=== PATIENT | male | born 1955 | race Caucasian/White ===

== ENCOUNTER 2019-02-21 17:44 | Emergency (ER) | payer OTHER ==
[~2019-02-21] VITALS: Ht 190.5 cm; Wt 127.0 kg
[2019-02-21 18:12] VITALS: BP 140/90
--- NOTE | 2019-02-21 19:00 | NUR ---
PATIENT WENT TO ER BED 4 BY WHEELCHAIR
--- NOTE | 2019-02-21 19:15 | NUR ---
63/M PRESENTS TO ED FROM [facility] C/O MEDICAL EXAM. PT STATES THAT HIS HEALTH IS NOT MONITORED IT SHOULD BE AT THE [facility], HE WOULD LIKE TO BE SEEN TO MAKE SURE HIS HEALTH IS OKAY. DUE TO A SEIZURE A MONTH AGO AND DUE TO MEDICAL HX OF HTN, CHF, DM AND SEIZURES.
--- NOTE | 2019-02-21 20:13 | NUR ---
Patient discharged with v/s stable. Written and verbal after care instructions given and explained. Patient alert, oriented and verbalized understanding of instructions. Left using wheelchair device. All questions addressed prior to discharge. ID band removed. Patient advised to follow up with PMD. Rx of Metformin given. Patient educated on indication of medication including possible reaction and side effects. Opportunity to ask questions provided and answered.
== END 2019-02-21 20:13 | disposition home or self-care (01) ==
LOC: MED 17:44
DX: E11.9 Type 2 diabetes mellitus without complications (principal); I50.9 Heart failure, unspecified; Z76.0 Encounter for issue of repeat prescription; Z86.73 Personal history of transient ischemic attack (TIA), and cerebral infarction without residual deficits
CPT/HCPCS: 82948; 99283

== ENCOUNTER 2019-04-06 05:20 | Emergency (ER) | payer OTHER ==
[~2019-04-06] VITALS: Ht 190.5 cm; Wt 90.7 kg
[2019-04-06] MEDS ORDERED: NACL 0.9% 500 ML IV SCH (05:26)
[2019-04-06 05:37] VITALS: BP 156/81
--- NOTE | 2019-04-06 05:50 | NUR ---
63 Y/O MALE BIBA C/O SORENESS/WEAKNESS/ STIFFNESS S/P SLIP AND FALL IN THE RESTROOM 5 AM YESTERDAY. PAIN IS A 6/10, GENERALIZED. PATIENT IS PARALYZED ON THE RIGHT SIDE. A/O X4 TO PERSON PLACE, TIME, DATE. HE IS CONTRACTED TO THE RIGHT SIDE. ERMD AWARE OF PATIENT. SIDE RAILSX2. PMH: HTN, CHF, DM, SEIZURES RX:SEE MED REC. ALLERGIES: NONE
--- NOTE | 2019-04-06 05:50 | NUR ---
Note undone in EDM - 04/06/19 at 0554 by [facility] 63 Y/O MALE BIBA C/O SORENESS/WEAKNESS/ STIFFNESS S/P SLIP AND FALL IN THE RESTROOM 5 AM YESTERDAY. PAIN IS A 6/10, GENERALIZED. PATIENT IS PARALYZED ON THE RIGHT SIDE. A/O X4 TO PERSON PLACE, TIME, DATE. HE IS CONTRACTED TO THE RIGHT SIDE. PMH: HTN, CHF, DM, SEIZURES RX:SEE MED REC. ALLERGIES: NONE
[2019-04-06 06:31] LABS: BASOPHILS % (AUTO) 0.3 % (0.0-2.0); EOSINOPHILS % (AUTO) 0.1 % (0.0-4.0); HEMATOCRIT 32.9 % (36-52); HEMOGLOBIN 10.9 g/dL (12.0-18.0); LYMPHOCYTES # (AUTO) 1.1 K/uL (2.0-11.5); LYMPHOCYTES % (AUTO) 11.9 % (20.5-51.1); MEAN CORPUSCULAR HEMOGLOBIN 27 pg (27-31); MEAN CORPUSCULAR HGB CONC 33 g/dL (33-37); MEAN CORPUSCULAR VOLUME 81.8 fL (80-94); MONOCYTES # (AUTO) 0.7 K/uL (0.8-1.0); MONOCYTES % (AUTO) 7.6 % (1.7-9.3); NEUTROPHILS # (AUTO) 7.2 K/uL (1.8-7.7); NEUTROPHILS % (AUTO) 80.1 % (42.2-75.2); PLATELET COUNT (AUTO) 249 K/uL (140-450); RED BLOOD CELL COUNT(AUTO) 4.03 MIL/uL (4.20-6.10); RED CELL DISTRIBUTION WIDTH 14.9 % (11.6-13.7); WHITE BLOOD COUNT (AUTO) 8.9 K/uL (4.8-10.8)
[2019-04-06 06:32] LABS: ALBUMIN 3.1 g/dL (3.4-5.0); ANION GAP 11.4 (8-16); CARBON DIOXIDE 28.9 mmol/L (21-32); CREATININE 1.8 mg/dL (0.7-1.3); POTASSIUM 4.3 mmol/L (3.5-5.1); TOTAL BILIRUBIN 0.3 mg/dL (0.0-1.0)
[2019-04-06 06:39] LABS: PROTHROMBIN TIME 9.5 secs (10.8-13.4)
--- NOTE | 2019-04-06 06:40 | NUR ---
PT WENT TO CT
--- NOTE | 2019-04-06 06:43 | NUR ---
PATIENT TAKEN TO CT.
--- NOTE | 2019-04-06 06:51 | NUR ---
Pt. is sleeping at this time. Side railsx2.
--- NOTE | 2019-04-06 07:15 | NUR ---
Pt report given to LAQUITA Vergara. Transfer of care at this time.
--- NOTE | 2019-04-06 07:16 | NUR ---
PT ASLEEP. EASILY AROUSABLE BY VOICE. FULL CLEAR SPEECH. EVEN AND UNLABORED BREATHING. NO SIGNS AND SYMPTOMS OF DISTRESS NOTED. PT ON FULL LOAD DISPATCHER LOCAL. WILL CONTINUE TO MONITOR.
[2019-04-06 07:18] LABS: BILIRUBIN,URINE NEGATIVE (NEGATIVE); BLOOD, URINE TRACE-I (NEGATIVE); LEUKOCYTE ESTERASE ,URINE 1+ (NEGATIVE); NITRITE, URINE POSITIVE (NEGATIVE); PH,URINE 6.5 (5.0-9.0); UGLUCOSE NEGATIVE (NEGATIVE)
[2019-04-06 07:19] LABS: COLOR,URINE YELLOW (YELLOW)
[2019-04-06 07:25] LABS: APPEARANCE,URINE SLIGHTLY HAZY (CLEAR)
[2019-04-06 07:34] LABS: RBC,URINE 0-5 /HPF (0-5)
--- NOTE | 2019-04-06 07:54 | NUR ---
DR MARTINEZ AT BEDSIDE FOR PT EVALUATION
[2019-04-06] MEDS ORDERED: cefTRIAXone 1,000 MG VIAL ONE (08:19)
--- NOTE | 2019-04-06 08:50 | NUR ---
Pt report given to LAQUITA AGUIAR. Transfer of care at this time.
[2019-04-06 09:15] VITALS: BP 122/95
--- NOTE | 2019-04-06 09:15 | NUR ---
Patient discharged with v/s stable. Written and verbal after care instructions given and explained. Patient alert, oriented and verbalized understanding of instructions. Wheel Chair Assisted with by halie Kaufman. All questions addressed prior to discharge. ID band removed. Patient advised to follow up with PMD. Rx of Bactrim given. Patient educated on indication of medication including possible reaction and side effects. Opportunity to ask questions provided and answered. Pt transported back to [facility] by Halie Kaufman.
== END 2019-04-06 09:15 | disposition home or self-care (01) ==
LOC: MED 05:20
DX: R53.1 Weakness (principal); N39.0 Urinary tract infection, site not specified; I11.0 Hypertensive heart disease with heart failure; I50.9 Heart failure, unspecified; E11.9 Type 2 diabetes mellitus without complications; Z86.73 Personal history of transient ischemic attack (TIA), and cerebral infarction without residual deficits; Z98.890 Other specified postprocedural states
CPT/HCPCS: 36415; 70450; 71045; 80053; 81001; 82948; 83605; 83880; 84484; 85025; 85610; 85730; 87040; 87086; 93005; 96365; 99284; J0696; J7030

== ENCOUNTER 2019-08-11 15:12 | Emergency (ER) | payer OTHER, MEDICAID ==
[~2019-08-11] VITALS: Ht 190.5 cm; Wt 127.0 kg
[2019-08-11 15:18] VITALS: BP 176/91
--- NOTE | 2019-08-11 15:22 | NUR ---
PT PLACED IN BED 6.
--- NOTE | 2019-08-11 15:45 | NUR ---
PT BIBA C/O RIGHT ANKEL PAIN S/P MECHANICAL FALL TODAY AT A DR'S APPOINTMENT. PT'S RIGHT ANKLE IS EDEMAOUS W/O DISCOLORATION OR DEFORMITY. REDUCED ROM. PT DENIES HIT HIS HEAD OR LOC DUE TO THE FALL. PATIENT STATES PAIN OF 8/10 AT THIS TIME; VSS; PATIENT POSITIONED FOR COMFORT; HOB ELEVATED; BEDRAILS UP X2; BED DOWN. ER MD MADE AWARE OF PT STATUS. PT IS ON THE MONITOR.
--- NOTE | 2019-08-11 16:40 | NUR ---
Pt is resting in bed with eyes closed. VSS.
--- NOTE | 2019-08-11 17:22 | NUR ---
RIGHT ANKLE WRAPPED WITH AN GRACIA WRAP #3, PULSES, MOTOR, AND CIRCULATION INTACT BEFORE AND AFTER APPLICATION.
[2019-08-11] MEDS: KETOROLAC 60 MG/2 ML VIAL IM ONE (17:25)
[2019-08-11 18:16] VITALS: BP 143/89
--- NOTE | 2019-08-11 18:16 | NUR ---
Patient to be transferred to [facility]. Patient belongings inventoried and will be sent with patient. Prescription and care instruction will be sent with patient. Report called to the receiving facility. [facility] ambulance service is transfering pt at bedside.
== END 2019-08-11 18:20 ==
LOC: MED 15:12
DX: S93.401A Sprain of unspecified ligament of right ankle, initial encounter (principal); I11.0 Hypertensive heart disease with heart failure; I50.9 Heart failure, unspecified; E11.9 Type 2 diabetes mellitus without complications; Z86.69 Personal history of other diseases of the nervous system and sense organs; Z86.73 Personal history of transient ischemic attack (TIA), and cerebral infarction without residual deficits; W18.39XA Other fall on same level, initial encounter; Y92.89 Other specified places as the place of occurrence of the external cause; Y93.89 Activity, other specified; Y99.8 Other external cause status
CPT/HCPCS: 73610; 96372; 99283; J1885; Q0092

== ENCOUNTER 2019-08-12 14:09 | Emergency (ER) | payer OTHER, MEDICAID ==
[~2019-08-12] VITALS: Ht 190.5 cm; Wt 127.0 kg
[2019-08-12 14:16] VITALS: BP 134/82
--- NOTE | 2019-08-12 14:40 | NUR ---
RECHECK FOR RT ANKLE SPRAIN SEEN YESTERDAY S/P FELL AT HIS DOCTORS APOINTMENT. DENIES ALOC OR OTHER INJURIES. NO DEFORMITY NOTED. CMS INTACT. HX: LT CVA, RT HEMIPHARESIS, HTN, DM, CHF
--- NOTE | 2019-08-12 14:54 | NUR ---
POSTERIOR SHORT LEG SPLINT APPLIED TO THE PATIENT'S RIGHT ANKLE AND FOOT. ORTHO GLASS #5 USED IN COMBINATION WITH TWO GRACIA WRAP #3. PULSES, MOTOR, AND CIRCULATION INTACT BEFORE AND AFTER APPLICATION.
--- NOTE | 2019-08-12 15:00 | NUR ---
POSTERIOR SHORT LEG SPLINT APPLIED TO L LEG BY EMT. [facility]MSC INTACT PRIOR TO SPLINT. PMSC INTACT POST SPLINT.
[2019-08-12 15:15] VITALS: BP 134/82
[2019-08-12] MEDS: IBUPROFEN 800 MG TAB PO ONE (15:36)
--- NOTE | 2019-08-12 15:38 | NUR ---
Patient discharged with v/s stable. Written and verbal after care instructions given and explained. Patient verbalized understanding. LEFT VIA ELECTRIC W/C. All questions addressed prior to discharge. Advised to follow up with PMD.
== END 2019-08-12 15:38 | disposition home or self-care (01) ==
LOC: MED 14:09
DX: S93.401A Sprain of unspecified ligament of right ankle, initial encounter (principal); I11.0 Hypertensive heart disease with heart failure; I50.9 Heart failure, unspecified; E11.9 Type 2 diabetes mellitus without complications; Z86.69 Personal history of other diseases of the nervous system and sense organs; Z86.73 Personal history of transient ischemic attack (TIA), and cerebral infarction without residual deficits; X58.XXXA Exposure to other specified factors, initial encounter; Y92.89 Other specified places as the place of occurrence of the external cause; Y93.89 Activity, other specified; Y99.8 Other external cause status
CPT/HCPCS: 29515; 99283

== ENCOUNTER 2019-08-14 04:23 | Emergency (ER) | payer OTHER, MEDICAID ==
[~2019-08-14] VITALS: Ht 190.5 cm; Wt 127.0 kg
--- NOTE | 2019-08-14 04:25 | NUR ---
PT BETO BENITEZ. TAKEN TO BED 11
[2019-08-14 04:30] VITALS: BP 140/96
--- NOTE | 2019-08-14 04:48 | NUR ---
Dr. Medley examining patient.
--- NOTE | 2019-08-14 04:50 | NUR ---
63 YO M BETO FROM [facility] FOR COLD S/SX. PT C/O RUNNY NOSE, SORE THROAT AND WET PRODUCTIVE COUGH X 3 DAYS. REPORTS SUBJECTIVE FEVER, CHILLS. DENIES NVD. LUNG SOUNDS DIMINISHED. PT BREATHING THROUGH MOUTH. DIFFICULTY TAKING DEEP BREATH. SKIN COLOR NORMAL FOR ETHNICITY, WARM, DRY. BREATHING EVEN, UNLABORED. 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
[2019-08-14] MEDS ORDERED: KETOROLAC 30 MG/ML VIAL IVP ONE (04:55)
[2019-08-14] MEDS ORDERED: NACL 0.9% 1,000 ML IV ONE (04:55)
--- NOTE | 2019-08-14 05:08 | NUR ---
XR AT BEDSIDE.
--- NOTE | 2019-08-14 05:15 | NUR ---
MEDICATED WITH 30 MG IVP TORADOL. WILL REASSESS.
--- NOTE | 2019-08-14 05:28 | NUR ---
FLU SWAB COLLECTED AND WALKED TO LAB.
--- NOTE | 2019-08-14 05:30 | NUR ---
REPORTS MINIMAL RELIEF. 7/10 FUNES. STATES IS TOLERABLE AT THIS TIME.
[2019-08-14 05:43] LABS: BASOPHILS % (AUTO) 0.1 % (0.0-2.0); HEMATOCRIT 31.7 % (36-52); HEMOGLOBIN 10.4 g/dL (12.0-18.0); LYMPHOCYTES # (AUTO) 0.2 K/uL (2.0-11.5); LYMPHOCYTES % (AUTO) 2.4 % (20.5-51.1); MEAN CORPUSCULAR HEMOGLOBIN 27 pg (27-31); MEAN CORPUSCULAR HGB CONC 33 g/dL (33-37); MEAN CORPUSCULAR VOLUME 81.2 fL (80-94); MONOCYTES # (AUTO) 0.5 K/uL (0.8-1.0); MONOCYTES % (AUTO) 5.3 % (1.7-9.3); NEUTROPHILS # (AUTO) 9.4 K/uL (1.8-7.7); NEUTROPHILS % (AUTO) 92.2 % (42.2-75.2); PLATELET COUNT (AUTO) 209 K/uL (140-450); RED CELL DISTRIBUTION WIDTH 14.7 % (11.6-13.7); WHITE BLOOD COUNT (AUTO) 10.2 K/uL (4.8-10.8)
[2019-08-14 06:05] LABS: ALBUMIN 2.7 g/dL (3.4-5.0); ANION GAP 10.1 (8-16); CREATININE 1.8 mg/dL (0.7-1.3); POTASSIUM 4.1 mmol/L (3.5-5.1); TOTAL BILIRUBIN 0.3 mg/dL (0.0-1.0)
--- NOTE | 2019-08-14 06:34 | NUR ---
CALLED TUCKER DE JESUS TO GIVE REPORT. NO ANSWER .
--- NOTE | 2019-08-14 06:43 | NUR ---
PT WILL BE TRANSPORTED BACK TO [facility]IA [facility]. ETA [phone].
--- NOTE | 2019-08-14 06:45 | NUR ---
PT REPORTS FUNES RETURNING. 03/[address] MCCARTNEY MADE AWARE.
[2019-08-14] MEDS ORDERED: MORPHINE SULFATE 4 MG/ML SYR IVP ONE (06:50)
--- NOTE | 2019-08-14 07:06 | NUR ---
MEDICATED WITH 4 MG IVP FOR 8 FUNES. WILL REASSESS.
--- NOTE | 2019-08-14 07:08 | NUR ---
CALLED TUCKER DE JESUS TO GIVE REPORT. NO ANSWER .
--- NOTE | 2019-08-14 07:08 | NUR ---
PT PLACED ON 3 LPM O2 FOR SPO2 <94%. SPO2 INCREASED TO 97%.
--- NOTE | 2019-08-14 07:10 | NUR ---
REPORT GIVEN TO LAQUITA CUEVAS. TRANSFER OF CARE AT THIS TIME.
--- NOTE | 2019-08-14 07:49 | NUR ---
Patient discharged with v/s stable. Written and verbal after care instructions given and explained. Patient alert, oriented and verbalized understanding of instructions. Wheel Chair Assisted with [facility] to intermediate. All questions addressed prior to discharge. ID band removed. Patient advised to follow up with PMD. Rx of Motrin 800mg and [place] 5mg was given. Patient educated on indication of medication including possible reaction and side effects. Opportunity to ask questions provided and answered.
[2019-08-14 07:50] VITALS: BP 123/77
--- NOTE | 2019-08-14 07:50 | NUR ---
[facility] arrived to transport pt to [facility]
== END 2019-08-14 07:49 | disposition home or self-care (01) ==
LOC: MED 04:23
DX: J10.1 Influenza due to other identified influenza virus with other respiratory manifestations (principal); I11.0 Hypertensive heart disease with heart failure; I50.9 Heart failure, unspecified; E11.9 Type 2 diabetes mellitus without complications; Z86.73 Personal history of transient ischemic attack (TIA), and cerebral infarction without residual deficits; Z90.49 Acquired absence of other specified parts of digestive tract
CPT/HCPCS: 36415; 71045; 80053; 84484; 85025; 87804; 96374; 96375; 99284; J1885; J2270; J7030; Q0092

== ENCOUNTER 2019-08-16 08:27 | Emergency (ER) | payer OTHER, MEDICAID ==
[~2019-08-16] VITALS: Ht 190.5 cm; Wt 127.0 kg
[2019-08-16 08:39] VITALS: BP 177/101
[2019-08-16 09:55] VITALS: BP 177/101
== END 2019-08-16 09:54 | disposition home or self-care (01) ==
LOC: MED 08:27
DX: J11.1 Influenza due to unidentified influenza virus with other respiratory manifestations (principal); E11.9 Type 2 diabetes mellitus without complications; I10 Essential (primary) hypertension; Z86.79 Personal history of other diseases of the circulatory system; Z90.49 Acquired absence of other specified parts of digestive tract
CPT/HCPCS: 71045; 99283; Q0092

== ENCOUNTER 2019-08-22 21:26 | Inpatient (IN) | payer OTHER, MEDICAID ==
[~2019-08-22] VITALS: Ht 185.4 cm; Wt 108.9 kg
[2019-08-22 21:30] VITALS: BP 134/76
--- NOTE | 2019-08-22 21:30 | NUR ---
63 Y/O MALE PT BIBA BLS C/O PRODUCTIVE COUGH AND CONGESTION X 1 MONTH. A/OX4 FOLLOWS COMMANDS; BREATHING UNLABORED AND SYMMETRICAL. CLEAR/DIMINISHED BREATH SOUNDS. DRY COUGH NOTED. RIGHT SIDED DEFICITS NOTED. ERMD MADE AWARE OF STATUS. SIDE RAILSX1. WILL CONTINUE TO MONITOR. MEDHX: STROKE X 2, HTN, CHF, HLD RX:SEE MED RECORD NKDA
[2019-08-22] MEDS ORDERED: KETOROLAC 30 MG/ML VIAL IVP ONE (21:50)
[2019-08-22] MEDS ORDERED: NACL 0.9% 1,000 ML IV ONE (21:50)
[2019-08-22] MEDS ORDERED: MEROPENEM 1,000 MG in NACL 0.9% 100 ML IV ONE (22:10)
[2019-08-22] MEDS ORDERED: VANCOMYCIN 1,000 MG in DEXTROSE 5% 250 ML IV ONE (22:10)
[2019-08-22] MEDS ORDERED: DOCUSATE SODIUM 100 MG GELCAP PO PRN (22:25)
[2019-08-22] MEDS ORDERED: ACETAMINOPHEN 325 MG TAB PO PRN (22:25)
[2019-08-22] MEDS ORDERED: ONDANSETRON 4 MG/2 ML VIAL IM/IVP PRN (22:25)
[2019-08-22] MEDS ORDERED: VANCOMYCIN 1,000 MG VIAL ONE (22:38)
[2019-08-22] MEDS ORDERED: MEROPENEM 1,000 MG VIAL IV ONE (22:38)
[2019-08-22 22:46] LABS: BASOPHILS % (AUTO) 0.3 % (0.0-2.0); EOSINOPHILS % (AUTO) 0.3 % (0.0-4.0); HEMATOCRIT 36.6 % (36-52); HEMOGLOBIN 11.8 g/dL (12.0-18.0); LYMPHOCYTES # (AUTO) 1.2 K/uL (2.0-11.5); LYMPHOCYTES % (AUTO) 14.7 % (20.5-51.1); MEAN CORPUSCULAR HEMOGLOBIN 26 pg (27-31); MEAN CORPUSCULAR HGB CONC 32 g/dL (33-37); MEAN CORPUSCULAR VOLUME 80.9 fL (80-94); MONOCYTES # (AUTO) 0.5 K/uL (0.8-1.0); MONOCYTES % (AUTO) 6.2 % (1.7-9.3); NEUTROPHILS # (AUTO) 6.4 K/uL (1.8-7.7); NEUTROPHILS % (AUTO) 78.5 % (42.2-75.2); PLATELET COUNT (AUTO) 249 K/uL (140-450); RED BLOOD CELL COUNT(AUTO) 4.53 MIL/uL (4.20-6.10); WHITE BLOOD COUNT (AUTO) 8.2 K/uL (4.8-10.8)
[2019-08-22 23:02] LABS: ANION GAP 13.3 (8-16); CARBON DIOXIDE 29.1 mmol/L (21-32); CREATININE 2.1 mg/dL (0.7-1.3); POTASSIUM 4.4 mmol/L (3.5-5.1)
[2019-08-22] MEDS ORDERED: ACET-2619 PO (23:06)
[2019-08-22 23:07] LABS: ALBUMIN 3.2 g/dL (3.4-5.0); TOTAL BILIRUBIN 0.3 mg/dL (0.0-1.0)
[2019-08-22] MEDS ORDERED: BUME1TAB92 PO (23:07)
[2019-08-22 23:09] LABS: CREATINE KINASE MB 1.2 ng/mL (0-3.6)
[2019-08-22] MEDS ORDERED: CETI10TA71 PO (23:09)
[2019-08-22] MEDS ORDERED: DOCU-299 PO (23:10)
[2019-08-22] MEDS ORDERED: FERR325E14 PO (23:11)
[2019-08-22] MEDS ORDERED: HYDR100T79 PO (23:12)
[2019-08-22] MEDS ORDERED: SITA100T8 PO (23:14)
[2019-08-22] MEDS ORDERED: HYDR-3320 PO (23:14)
[2019-08-22 23:15] LABS: PROTHROMBIN TIME 9.9 secs (10.8-13.4)
[2019-08-22] MEDS ORDERED: ONDA4TAB PO (23:19)
[2019-08-22] MEDS ORDERED: [UNRECOGNIZED DRUG - CODE] TP (23:20)
[2019-08-22] MEDS ORDERED: TRAZ-343 PO (23:24)
[2019-08-22] MEDS ORDERED: DICL100T2 TP (23:26)
[2019-08-22] MEDS ORDERED: INSULIN LISPRO SLIDING SCALE 100 UNITS/ML VIAL SUBQ PRN (23:40)
[2019-08-22] MEDS ORDERED: AZITHROMYCIN 500 MG in DEXTROSE 5% 250 ML IV ONE (23:40)
--- NOTE | 2019-08-22 23:45 | NUR ---
PT WAS UNABLE TO URINATE AT THIS TIME. ERMD MADE AWARE
[2019-08-22 23:59] LABS: PHOSPHORUS 2.8 mg/dL (2.5-4.9); THYROID STIMULATING HORMONE 2.7 uIU/mL (0.34-3.74)
[2019-08-23] MEDS ORDERED: ROSU40TA PO (00:03)
[2019-08-23] MEDS ORDERED: LOSA25TA43 PO (00:03)
[2019-08-23] MEDS ORDERED: TAMS0.4C96 PO (00:03)
[2019-08-23] MEDS ORDERED: GLIP5TER PO (00:03)
[2019-08-23] MEDS ORDERED: HYDR-732 PO (00:03)
[2019-08-23] MEDS ORDERED: SITA50TA3 PO (00:03)
[2019-08-23] MEDS ORDERED: ASPI81EC97 PO (00:03)
[2019-08-23] MEDS ORDERED: LEVE1000 PO (00:03)
--- NOTE | 2019-08-23 00:10 | NUR ---
Patient will be admitted to care of DR. MCRAE. Admited to MED-SURG ROOM 116 Belongings list completed. Report to LAQUITA HARTMAN.
--- NOTE | 2019-08-23 00:15 | NUR ---
RECEIVED BEDSIDE REPORT FROM [place] ER NURSE. PATIENT IS AWAKE, ALERT, AND COOPERATIVE. ADMITTING DIAGNOSIS PNEUMONIA. RESPIRATION EVEN UNLABORED ON 2L NC O2. NO DISTRESS NOTED. SKIN IS WARM AND DRY. IV INFILTRATED. SWELLING NOTED. HEART RATE REGULAR. S1&S2 NOTED. LUNGS SOUNDS DIMINISHED. BOWEL SOUNDS ACTIVE AND PRESENT IN ALL QUADRANTS. ABDOMEN SOFT AND ROUND NON-TENDER TO TOUCH. LAST BM 08/22/19. RIGHT SIDEDNESS WEAKNESS NOTED HX OF CVA 1995. MRSA SCREEN DONE. VITALS WERE TAKEN. ORIENT PATIENT TO THE ROOM, STAFF, AND CALL LIGHT. ALL SAFETY MEASURES IN PLACE. BED IS AT LOW POSITION. CALL LIGHT WITHIN REACH AND VERBALIZES ITS USE. WILL CONTINUE TO MONITOR.
--- NOTE | 2019-08-23 00:30 | NUR ---
UNABLE TO START AN IV. CHARGE NURSE TRIED SEVERAL TIMES STILL NO LUCK. NOTIFIED . AWAITING FOR ORDERS.
[2019-08-23 00:48] VITALS: BP 141/95
--- NOTE | 2019-08-23 01:30 | NUR ---
AWAITING FOR ER NURSE TO START AN IV. WILL CONTINUE TO MONITOR.
--- NOTE | 2019-08-23 02:39 | NUR ---
CHECKED PATIENT. PATIENT SLEEPING RESPIRATION EVEN UNLABORED ON 2L NC O2. NO DISTRESS NOTED. WILL CONTINUE TO MONITOR.
--- NOTE | 2019-08-23 03:46 | NUR ---
PATIENT COMPLAINED OF BACK MUSCLE SPASM 04/12. ADMINISTERED MEDS PER ORDER. WILL CONTINUE TO MONITOR.
[2019-08-23 04:00] LABS: APPEARANCE,URINE CLOUDY (CLEAR); BILIRUBIN,URINE NEGATIVE (NEGATIVE); BLOOD, URINE NEGATIVE (NEGATIVE); COLOR,URINE YELLOW (YELLOW); LEUKOCYTE ESTERASE ,URINE NEGATIVE (NEGATIVE); NITRITE, URINE NEGATIVE (NEGATIVE); UGLUCOSE NEGATIVE (NEGATIVE)
[2019-08-23] MEDS ORDERED: CYCLOBENZAPRINE 10 MG TAB PO SCH ×2 (04:00→21:30)
[2019-08-23 04:09] LABS: BARBITURATE, URINE NEG. ng/ml (NEG <=200); BENZODIAZEPINE, URINE NEG. ng/mL (NEG <=200); CANNABINOID, URINE NEG. ng/mL (NEG <=50); COCAINE, URINE NEG. ng/mL (NEG <=300); OPIATE, URINE NEG. ng/mL (NEG <=2000); PHENCYCLIDINE SCREEN,URINE NEG. ng/mL (NEG <=25)
[2019-08-23] MEDS ORDERED: cefTRIAXone 1,000 MG VIAL ONE (04:10)
[2019-08-23] MEDS ORDERED: AZITHROMYCIN 500 MG INJ VIAL IV ONE (04:12)
[2019-08-23] MEDS: NACL 0.9% 1,000 ML IV SCH ×3 (04:27→22:49)
--- NOTE | 2019-08-23 06:17 | NUR ---
Called PICC division officer weapons department and texted Elvis PICC RN, lm for both
[2019-08-23] MEDS: BLOOD GLUCOSE MONITORING 1 DEV DEV FS SCH ×4 (06:34→20:54)
--- NOTE | 2019-08-23 07:20 | NUR ---
ENDORSED PATIENT TO DAY SHIFT NURSE. PATIENT IN STABLE CONDITION.
--- NOTE | 2019-08-23 07:25 | NUR ---
REPORT RECEIVED FROM BILLING AUDITOR NURSE FOR CONTINUATION OF CARE. PATIENT IS RESTING IN BED, AAOX4, RESPONDS TO VERBAL COMMANDS. IV IS IN LEFT HAND, PICC LINE ORDERED AND TO BE GIVEN TODAY FOR HX OF CONSECUTIVE IV PLACEMENT FAILURE AND HIGH DEMAND FOR IV ANTIBIOTICS. CONSENT TO BE SIGNED AND PROCEDURE TO BE EXPLAINED BY RESIDENT PHYSICIAN. CALL LIGHT ON AND WITHIN REACH. WILL CONTINUE TO MONITOR.
[2019-08-23 07:52] LABS: MAGNESIUM 1.8 mg/dL (1.8-2.4); PHOSPHORUS 3.2 mg/dL (2.5-4.9)
[2019-08-23 08:00] VITALS: BP 134/93
[2019-08-23 08:24] LABS: BASOPHILS % (AUTO) 0.2 % (0.0-2.0); EOSINOPHILS % (AUTO) 0.2 % (0.0-4.0); HEMATOCRIT 31.1 % (36-52); HEMOGLOBIN 10.3 g/dL (12.0-18.0); LYMPHOCYTES # (AUTO) 1.1 K/uL (2.0-11.5); LYMPHOCYTES % (AUTO) 17.3 % (20.5-51.1); MEAN CORPUSCULAR HEMOGLOBIN 27 pg (27-31); MEAN CORPUSCULAR HGB CONC 33 g/dL (33-37); MEAN CORPUSCULAR VOLUME 80.2 fL (80-94); MONOCYTES # (AUTO) 0.4 K/uL (0.8-1.0); MONOCYTES % (AUTO) 6.9 % (1.7-9.3); NEUTROPHILS # (AUTO) 4.8 K/uL (1.8-7.7); NEUTROPHILS % (AUTO) 75.4 % (42.2-75.2); PLATELET COUNT (AUTO) 214 K/uL (140-450); RED BLOOD CELL COUNT(AUTO) 3.88 MIL/uL (4.20-6.10); RED CELL DISTRIBUTION WIDTH 14.6 % (11.6-13.7); WHITE BLOOD COUNT (AUTO) 6.3 K/uL (4.8-10.8)
--- NOTE | 2019-08-23 08:40 | NUR ---
PATIENT HAS BEEN SCREENED AND CATEGORIZED MODERATE NUTRITION RISK. PATIENT WILL BE SEEN WITHIN 3-5 DAYS OF ADMISSION. 08/25/19 08/27/[address]
[2019-08-23 08:54] LABS: CHOL/HDL RATIO 4.9 (1-4.5)
[2019-08-23] MEDS ORDERED: ROSUVASTATIN CALCIUM 40 MG PO SCH (09:00)
--- NOTE | 2019-08-23 10:30 | NUR ---
PATIENT REFUSED TO HAVE A PICC LINE INSERTED, THERE IS AN IV IN HIS LEFT HAND THAT IS SUFFICIENT PER MD. PICC LINE ORDER DC'D. MEDICATIONS TOLERATED WELL, PATIENT HAS RIGHT SIDED HEMIPLEGIA. PATIENT IS RESTING IN BED, REPOSITIONED FOR COMFORT. EDUCATED ON THE IMPORTANCE OF USING THE CALL LIGHT WHEN IN NEED. WILL CONTINUE TO MONITOR.
[2019-08-23] MEDS: levETIRAcetam 500 MG TAB PO SCH ×2 (10:48→20:43)
[2019-08-23] MEDS: TAMSULOSIN 0.4 MG CAP PO SCH (10:48)
[2019-08-23] MEDS: FERROUS SULFATE 325 MG TABEC PO SCH ×2 (10:49→20:43)
[2019-08-23] MEDS: LACTOBACILLUS RHAMNOSUS GG 1 EACH CAP PO SCH (10:49)
[2019-08-23] MEDS: glipiZIDE ER 5 MG TABER PO SCH (10:49)
[2019-08-23] MEDS: hydrALAZINE 25 MG TAB PO SCH ×4 (10:49→20:43)
[2019-08-23] MEDS: traZODone 50 MG TAB PO SCH (10:50)
[2019-08-23] MEDS: LOSARTAN 25 MG TAB PO SCH (10:50)
[2019-08-23] MEDS: guaiFENesin 600 MG TABER PO SCH ×2 (10:51→20:42)
[2019-08-23] MEDS: ATORVASTATIN 80 MG TAB PO SCH (10:51)
[2019-08-23] MEDS: ECOTRIN 81 MG TABEC PO SCH (10:51)
[2019-08-23] MEDS: ALBUTEROL SULFATE/IPRATROPIU 3 ML SOL IH SCH ×2 (13:01→19:39)
--- NOTE | 2019-08-23 13:35 | NUR ---
HERNANDEZ CATHETER INSERTED PER MD'S ORDERS, PATIENT COMPLAINING OF URGE TO URINATE WITH NO SUCCESSFUL URINATION, HE REPORTS PAIN AND DISCOMFORT, UPON SUCCESSFUL INSERTION OF HERNANDEZ CATHETER PATIENT HAD AN IMMEDIATE OUTPUT OF 175 ML'S OF DARK YELLOW URINE. PATIENT REPORTS RELIEF AT THIS TIME. EDUCATED ON THE SIGNS AND SYMPTOMS OF URINARY TRACT INFECTION AND TO REPORT TO NURSE IF FEELING PAIN OR FEVER. WILL CONTINUE TO MONITOR.
[2019-08-23 16:00] VITALS: BP 133/79
--- NOTE | 2019-08-23 16:00 | NUR ---
EDUCATED PATIENT ON THE IMPORTANCE OF REPORTING INCREASED THIRST, URINATION, OR APPETITE EARLY SIGNS OF BLOOD GLUCOSE DYSFUNCTION AND THE IMPORTANCE OF EARLY INTERVENTION. DENIS VERBALIZES UNDERSTANDING. PATIENT IS RESTING IN BED, CALL LIGHT ON AND WITHIN REACH. DENIES PAIN AT THIS TIME. HERNANDEZ CATHETER DRAINING CLEAR YELLOW URINE. HE DENIES DISCOMFORT AT THIS TIME. LUNCH TOLERATED WELL. WILL CONTINUE TO MONITOR.
--- NOTE | 2019-08-23 18:00 | NUR ---
BLOOD GLUCOSE 62, DENIS WAS GIVEN ORANGE JUICE 1 BOTTLE AND ENCOURAGED TO DRINK IT, PATIENT ATE 100% OF DINNER, PATIENT IS AAOX4 AND IS VERBALLY RESPONDING TO COMMANDS. MEDICATIONS GIVEN ORDERED FOR BLOOD PRESSURE MANAGEMENT. DENIS DENIES PAIN AT THIS TIME, CALL LIGHT ON AND WITHIN REACH, REPOSITIONED, REVIEWED PLAN OF CARE WITH PATIENT, HE VERBALIZES UNDERSTANDING. WILL CONTINUE TO MONITOR.
--- NOTE | 2019-08-23 19:00 | NUR ---
RECEIVED BEDSIDE REPORT FROM DAY SHIFT NURSE. PATIENT IS AWAKE, ALERT, AND COOPERATIVE. RESPIRATION EVEN UNLABORED ON 2L NC O2. NO DISTRESS NOTED. SKIN IS WARM AND DRY. IV PATENT AND INTACT. HERNANDEZ CATHETER NOTED DRAINING YELLOW URINE. PLAN OF CARE WAS DISCUSSED. ALL SAFETY MEASURES IN PLACE. BED IS AT LOW POSITION. CALL LIGHT WITHIN REACH AND VERBALIZES ITS USE. WILL CONTINUE TO MONITOR.
--- NOTE | 2019-08-23 19:01 | NUR ---
BEDSIDE SHIFT REPORT GIVEN TO ONCOMING SALES TEAM MEMBER NURSE FOR CONTINUATION OF CARE.
--- NOTE | 2019-08-23 20:00 | NUR ---
INITIAL ASSESSMENT DONE. VITALS WERE TAKEN. PATIENT IN STABLE CONDITION. NO DISTRESS NOTED. WILL CONTINUE TO MONITOR.
--- NOTE | 2019-08-23 20:45 | NUR ---
ALL SCHEDULED MEDS WERE GIVEN PER ORDER. NO ASE NOTED. WILL CONTINUE TO MONITOR.
--- NOTE | 2019-08-23 21:25 | NUR ---
PATIENT COMPLAINED OF 8/10 BACK MUSCLE SPASM PAIN. PRN MEDICATION GIVEN PER ORDER. WILL CONTINUE TO MONITOR.
--- NOTE | 2019-08-23 23:45 | NUR ---
VITALS WERE TAKEN. PATIENT IN STABLE CONDITION. NO DISTRESS NOTED. WILL CONTINUE TO MONITOR
[2019-08-24] VITALS: BP 133/74
--- NOTE | 2019-08-24 01:17 | NUR ---
CHECKED PATIENT. PATIENT SLEEPING RESPIRATION EVEN UNLABORED ON ROOM AIR. NO DISTRESS NOTED. WILL CONTINUE TO MONITOR.
--- NOTE | 2019-08-24 04:00 | NUR ---
VITALS WERE TAKEN. PATIENT IN STABLE CONDITION. NO DISTRESS NOTED. WILL CONTINUE TO MONITOR.
--- NOTE | 2019-08-24 05:51 | NUR ---
CHECKED PATIENT BLOOD SUGAR. PATIENT BLOOD SUGAR 59. PATIENT IS AWAKE, ALERT, AND NO DISTRESS NOTED. GAVE ORANGE JUICE WITH SUGAR. RECHECK BLOOD SUGAR STILL LOW. WILL ADMINISTERED D50 PER ORDER
[2019-08-24] MEDS: DEXTROSE 50% 50 ML SYR IVP PRN ×2 (05:53→17:02)
--- NOTE | 2019-08-24 05:53 | NUR ---
D50 GIVEN PER ORDER. WILL RECHECK BLOOD SUGAR WITHIN 15-30MINUTES.
--- NOTE | 2019-08-24 06:24 | NUR ---
RECHECKED PATIENT BLOOD SUGAR. PATIENT BLOOD SUGAR 172. WILL CONTINUE TO MONITOR.
[2019-08-24] MEDS: BLOOD GLUCOSE MONITORING 1 DEV DEV FS SCH ×4 (06:25→21:11)
[2019-08-24] MEDS: ALBUTEROL SULFATE/IPRATROPIU 3 ML SOL IH SCH ×3 (06:33→19:24)
[2019-08-24 07:15] LABS: BASOPHILS % (AUTO) 0.2 % (0.0-2.0); EOSINOPHILS % (AUTO) 0.1 % (0.0-4.0); HEMATOCRIT 33.5 % (36-52); HEMOGLOBIN 11.1 g/dL (12.0-18.0); LYMPHOCYTES # (AUTO) 0.8 K/uL (2.0-11.5); LYMPHOCYTES % (AUTO) 12.2 % (20.5-51.1); MEAN CORPUSCULAR HEMOGLOBIN 27 pg (27-31); MEAN CORPUSCULAR HGB CONC 33 g/dL (33-37); MEAN CORPUSCULAR VOLUME 80.1 fL (80-94); MONOCYTES # (AUTO) 0.3 K/uL (0.8-1.0); MONOCYTES % (AUTO) 4.7 % (1.7-9.3); NEUTROPHILS # (AUTO) 5.6 K/uL (1.8-7.7); NEUTROPHILS % (AUTO) 82.8 % (42.2-75.2); PLATELET COUNT (AUTO) 237 K/uL (140-450); RED BLOOD CELL COUNT(AUTO) 4.18 MIL/uL (4.20-6.10); RED CELL DISTRIBUTION WIDTH 14.3 % (11.6-13.7); WHITE BLOOD COUNT (AUTO) 6.8 K/uL (4.8-10.8)
--- NOTE | 2019-08-24 07:21 | NUR ---
ENDORSED PATIENT TO DAY SHIFT NURSE. PATIENT IN STABLE CONDITION.
--- NOTE | 2019-08-24 07:21 | NUR ---
RECEIVED REPORT FROM NIGHT NURSE, PT IS STABLE, RESTING IN BED, INTRODUCE SELF, WILL CONTINUE TO MONITOR, CALL LIGHT WITHIN REACH, SAFETY MEASURES IN PLACE.
[2019-08-24 07:43] LABS: ANION GAP 12.7 (8-16); CARBON DIOXIDE 24.8 mmol/L (21-32); CREATININE 1.8 mg/dL (0.7-1.3); POTASSIUM 4.5 mmol/L (3.5-5.1)
[2019-08-24 07:50] LABS: MAGNESIUM 1.8 mg/dL (1.8-2.4); PHOSPHORUS 2.4 mg/dL (2.5-4.9)
[2019-08-24 08:00] VITALS: BP 133/75
[2019-08-24] MEDS: ECOTRIN 81 MG TABEC PO SCH (09:08)
[2019-08-24] MEDS: hydrALAZINE 25 MG TAB PO SCH ×4 (09:08→21:02)
[2019-08-24] MEDS: ATORVASTATIN 80 MG TAB PO SCH (09:08)
[2019-08-24] MEDS: glipiZIDE ER 5 MG TABER PO SCH (09:10)
[2019-08-24] MEDS: levETIRAcetam 500 MG TAB PO SCH ×2 (09:10→21:03)
[2019-08-24] MEDS: AZITHROMYCIN 250 MG TAB PO SCH (09:10)
[2019-08-24] MEDS: guaiFENesin 600 MG TABER PO SCH ×2 (09:11→21:02)
[2019-08-24] MEDS: FERROUS SULFATE 325 MG TABEC PO SCH ×2 (09:11→21:02)
[2019-08-24] MEDS: traZODone 50 MG TAB PO SCH (09:12)
[2019-08-24] MEDS: LOSARTAN 25 MG TAB PO SCH (09:12)
--- NOTE | 2019-08-24 09:12 | NUR ---
SCREEN FOR LOW TRIP SCALE AT RISK, CONTINUE TO FOLLOW PRESSURE ULCER PREVENTION INTERVENTIONS. -TURN AND REPOSITION PATIENT Q2H, ASSIST IF NEEDED -ASSESS AND MONITOR SKIN CONDITION DURING POSITION CHANGES -OFFLOAD BILATERAL HEELS BY PLACING PILLOWS UNDER CALVES AT ALL TIMES, UNLESS OTHERWISE CONTRAINDICATED -PRESSURE REDISTRIBUTION BY PLACING PILLOWS AND OFFLOADING SACRALCOCCYX -KEEP SKIN CLEAN AND DRY AT ALL TIMES.
[2019-08-24] MEDS: TAMSULOSIN 0.4 MG CAP PO SCH (09:13)
[2019-08-24] MEDS: LACTOBACILLUS RHAMNOSUS GG 1 EACH CAP PO SCH (09:13)
--- NOTE | 2019-08-24 09:29 | NUR ---
GAVE PT ORDERED MEDICATION AND NORCO FOR BACK PAIN 02/09, PT EDUCATION GIVEN, PT TOLERATED WELL, PT IS STABLE, CALL LIGHT WITHIN REACH.
[2019-08-24] MEDS ORDERED: SODIUM PHOS / POTASSIUM PHOS 1 PKT PDR PO SCH (11:10)
[2019-08-24] MEDS: DEXT 5% /NACL 0.9% 1,000 ML IV SCH (12:17)
--- NOTE | 2019-08-24 12:18 | NUR ---
PT NPO EXCEPT FOR MEDS HE IS DUE FOR A SWALLOW EVALUVATION, BLOOD GLUCOSE IS 68, INFORMED DR ZUNIGA ABOUT GLUCOSE, CHANGED IV FLUIDS TO D5NS AT 60ML/H, ADMINISTERED THE ORDERED, PT IS STABLE, CALL LIGHT WITHIN REACH.
[2019-08-24 13:10] VITALS: BP 144/81
--- NOTE | 2019-08-24 13:15 | NUR ---
PATIENT RESTING, ALERT, ORIENTED, COOPERATIVE, NO UNUSUAL OBSERVATION NOTED.
--- NOTE | 2019-08-24 13:40 | NUR ---
PT IS ASLEEP IN BED, NO SIGNS OF DISTRESS NOTED, CALL LIGHT WITHIN REACH.
[2019-08-24] MEDS: HYDROcodone/APAP 5/325 MG 1 TAB TAB PO PRN (13:53)
[2019-08-24 15:06] LABS: FOLIC ACID 7.9 ng/mL (>3.0)
--- NOTE | 2019-08-24 15:39 | NUR ---
PT IS RESTING IN BED, PT IS STABLE, RESPIRATIONS ARE EVEN AND UNLABORED, CALL LIGHT WITHIN REACH.
[2019-08-24 16:00] VITALS: BP 123/73
--- NOTE | 2019-08-24 17:02 | NUR ---
GAVE PT DEXTROSE 50 FOR BLOOD SUGAR OF 55 PER PROTOCOL, PT EDUCATION GIVEN, PT TOLERATED WELL, WILL RE-ASSESS BLOOD SUGAR IN 30 MINUTES
--- NOTE | 2019-08-24 17:35 | NUR ---
RE- ASSESS PT BLOOD GLUCOSE: 120. PT IS STABLE, NO SIGNS OF DISTRESS NOTED, CALL LIGHT WITHIN REACH.
--- NOTE | 2019-08-24 18:00 | NUR ---
BEDSIDE SWALLOW EVALUATION DONE AT BEDSIDE, PT CAN TOLERATE PUREED DIET WELL,
--- NOTE | 2019-08-24 19:20 | NUR ---
GAVE REPORT TO NIGHT NURSE FOR CONTINUITY OF CARE, PT IS STABLE
--- NOTE | 2019-08-24 19:23 | NUR ---
RECEIVED BEDSIDE REPORT FROM DAY SHIFT NURSE. PATIENT IS AWAKE, ALERT, AND COOPERATIVE. RESPIRATION EVEN UNLABORED ON ROOM AIR. NO DISTRESS NOTED. SKIN IS WARM AND DRY. IV PATENT AND INTACT. HERNANDEZ CATHETER DRAINING YELLOW URINE. PLAN OF CARE WAS DISCUSSED. ALL SAFETY MEASURES IN PLACE. BED IS AT LOW POSITION. CALL LIGHT WITHIN REACH AND VERBALIZES ITS USE. WILL CONTINUE TO MONITOR.
--- NOTE | 2019-08-24 20:00 | NUR ---
INITIAL ASSESSMENT DONE. VITALS WERE TAKEN. PATIENT IN STABLE CONDITION. NO DISTRESS NOTED. WILL CONTINUE TO MONITOR.
--- NOTE | 2019-08-24 20:10 | NUR ---
PATIENT COMPLAINED OF BACK PAIN. HEATING PAD PROVIDED PER ORDER. WILL CONTINUE TO MONITOR.
--- NOTE | 2019-08-24 21:10 | NUR ---
ALL SCHEDULED MEDS WERE GIVEN PER ORDER. NO ASE NOTED. PATIENT BLOOD SUGAR 83. GAVE PATIENT ORANGE JUICE AND APPLE SAUCE. WILL CONTINUE TO MONITOR.
--- NOTE | 2019-08-24 22:40 | NUR ---
CHECKED PATIENT. PATIENT IN BED WATCHING TV RESPIRATION EVEN UNLABORED ON ROOM AIR. NO DISTRESS NOTED. WILL CONTINUE TO MONITOR.
--- NOTE | 2019-08-24 23:53 | NUR ---
VITALS WERE TAKEN. PATIENT IN STABLE CONDITION. NO DISTRESS NOTED. WILL CONTINUE TO MONITOR.
[2019-08-25] VITALS: BP 124/73
--- NOTE | 2019-08-25 02:00 | NUR ---
CHECKED PATIENT. PATIENT SLEEPING RESPIRATION EVEN UNLABORED ON ROOM AIR. NO DISTRESS NOTED. WILL CONTINUE TO MONITOR.
[2019-08-25] MEDS: DEXT 5% /NACL 0.9% 1,000 ML IV SCH ×2 (02:40→21:50)
--- NOTE | 2019-08-25 04:00 | NUR ---
CHECKED PATIENT. PATIENT SLEEPING RESPIRATION EVEN UNLABORED ON ROOM AIR. NO DISTRESS NOTED. WILL CONTINUE TO MONITOR.
--- NOTE | 2019-08-25 05:40 | NUR ---
CHECKED PATIENT BLOOD SUGAR. PATIENT BLOOD SUGAR 69. PATIENT IS ALERT, AWAKE, NO DISTRESS NOTED. D50 ADMINISTERED PER ORDER. WILL RECHECK BLOOD SUGAR.
[2019-08-25] MEDS: DEXTROSE 50% 50 ML SYR IVP PRN (05:42)
--- NOTE | 2019-08-25 06:09 | NUR ---
RECHECKED PATIENT BLOOD SUGAR 148.
[2019-08-25] MEDS: BLOOD GLUCOSE MONITORING 1 DEV DEV FS SCH ×4 (06:19→21:43)
--- NOTE | 2019-08-25 07:06 | NUR ---
ENDORSED PATIENT TO DAY SHIFT NURSE. PATIENT IN STABLE CONDITION.
[2019-08-25 08:00] VITALS: BP 138/72
[2019-08-25] MEDS: ALBUTEROL SULFATE/IPRATROPIU 3 ML SOL IH SCH ×3 (08:40→20:05)
[2019-08-25] MEDS ORDERED: BUMETANIDE 1 MG TAB PO SCH (09:00)
[2019-08-25] MEDS: LACTOBACILLUS RHAMNOSUS GG 1 EACH CAP PO SCH (10:13)
[2019-08-25] MEDS: TAMSULOSIN 0.4 MG CAP PO SCH (10:13)
[2019-08-25] MEDS: glipiZIDE ER 5 MG TABER PO SCH (10:13)
[2019-08-25] MEDS: levETIRAcetam 500 MG TAB PO SCH ×2 (10:14→21:55)
[2019-08-25] MEDS: FERROUS SULFATE 325 MG TABEC PO SCH ×2 (10:14→21:56)
[2019-08-25] MEDS: ATORVASTATIN 80 MG TAB PO SCH (10:14)
[2019-08-25] MEDS: guaiFENesin 600 MG TABER PO SCH ×2 (10:15→22:20)
[2019-08-25] MEDS: AZITHROMYCIN 250 MG TAB PO SCH (10:15)
[2019-08-25] MEDS: traZODone 50 MG TAB PO SCH (10:15)
[2019-08-25] MEDS: LOSARTAN 25 MG TAB PO SCH (10:16)
[2019-08-25] MEDS: ECOTRIN 81 MG TABEC PO SCH (10:16)
[2019-08-25] MEDS: hydrALAZINE 25 MG TAB PO SCH ×4 (10:28→21:56)
--- NOTE | 2019-08-25 11:57 | NUR ---
*S.T. BEDSIDE SWALLOW EVAL COMPLETED* See report for details. Pt presents w/ mild oral difficulty managing solids as he is edentulous and reportedly wears dentures for P.O. intake. However, dentures are not present in hospital at this time. Pt able to self-feed w/ non-dominant L hand. No overt s/s aspiration observed across all textures trialed. Pt able to gum up solid food w/ mild difficulty at reportedly does this occasionally at baseline. Recommend: 1) Advance to mechanical soft chopped diet, thin liquids okay. Straws okay. 2) P.O. meds okay, whole, one at a time. 3) Nsg to assist w/ tray set up and repositioning pt to promote self feeding w/ his non-dominant L UE. Pt appears to be functioning at his reported baseline level. Therefore, no further swallow tx is indicated at this time. DC to nsg care. Endorsed to LAQUITA Min. Time [id number]
[2019-08-25 12:00] VITALS: BP 136/72
--- NOTE | 2019-08-25 15:41 | NUR ---
DC PLANN[age] YRS OLD MALE PATIENT WAS ADMITTED FROM [facility] WITH A DX OF PNEUMONIA PATIENT HAS A HX OF DM, HTN , STROKE WITH LEFT SIDE WEAKNESS BPH AND SEIZURE DISORDER. C-XRAY CARDIOMEGALY , BLOOD,URINE AND SPUTUM PENDING ADMINISTERED IVF ,IV ABX WITH AZITHROMYCIN AND ROCEPHIN , CONTINUE HOME MEDS SEIZURE PRECAUTIONS , SWALLOWING EVAL RECOMMENDED MECHANICAL SOFT DIET. DC PLAN TO GO BACK TO [facility]. CM TO FOLLOW
[2019-08-25 16:00] VITALS: BP 138/74
[2019-08-25] MEDS: HYDROcodone/APAP 5/325 MG 1 TAB TAB PO PRN (18:19)
--- NOTE | 2019-08-25 19:20 | NUR ---
RECEIVED PT FROM NCIOLAS RN PT IS AAOX4 ON BED REST S/P CVA RT SIDE WEAKNESS IV ON LEFT FA INFUSING WELL FOLEYCATH DRAINING WELL YELLOW URINE REPOSITIONED INITIAL ASSESSMENT DONE
--- NOTE | 2019-08-25 19:30 | NUR ---
RECEIVED PT FROM NICOLAS COELHO PT IS AAOX4 ON BED REST RT SIDE WEAKNESS S/P CVA, IV ;ON LEFT HAND
[2019-08-25] MEDS ORDERED: cefTRIAXone 1,000 MG VIAL ONE (19:58)
[2019-08-25 20:00] VITALS: BP 124/64
--- NOTE | 2019-08-25 21:30 | NUR ---
BLOOD SUGAR TEST 78, HS SNACK GIVEN PT IS EATING WELL GOOD APPETITE
--- NOTE | 2019-08-26 | NUR ---
PT SLEEPING WELL NOT DISTRESS NOTED REPOSITIONED Q2H REMAIN QUIET AT THIS TIME
--- NOTE | 2019-08-26 04:00 | NUR ---
SPONGE BATH GIVEN LINEN CHANGED PT COOPERATIVE TO FOLLOW DOCTOR ORDERS
--- NOTE | 2019-08-26 07:15 | NUR ---
RECEIVED REPORT FROM DIRECTOR GLOBAL SALES NURSE. PT IS AWAKE AND ORIENTED. PT IS STABLE. CALL LIGHT WITHIN PT'S REACH, BED ON LOW, SIDERAILS UP. PT HAS IV AT LEFT AC 20G. WILL CONTINUE TO MONITOR
--- NOTE | 2019-08-26 07:34 | NUR ---
PT IS ENDORSED TO JUAN DIEGO COELHO FOR CONTINUE OF CARE
[2019-08-26] MEDS: BLOOD GLUCOSE MONITORING 1 DEV DEV FS SCH ×2 (07:36→11:30)
[2019-08-26] MEDS: DEXT 5% /NACL 0.9% 1,000 ML IV SCH (07:42)
[2019-08-26] MEDS: ALBUTEROL SULFATE/IPRATROPIU 3 ML SOL IH SCH ×2 (07:50→14:18)
[2019-08-26 08:00] VITALS: BP 140/74
--- NOTE | 2019-08-26 09:10 | NUR ---
SCHEDULED MEDS GIVEN. PT TOLERATED WELL. MEDICATION EDUCATION AND SIDE EFFECTS INSTRUCTED. PT VERBALIZED UNDERSTANDING. CALL LIGHT WITHIN PT'S REACH. WILL CONTINUE TO MONITOR.
[2019-08-26] MEDS: hydrALAZINE 25 MG TAB PO SCH ×2 (09:11→13:49)
[2019-08-26] MEDS: ECOTRIN 81 MG TABEC PO SCH (09:12)
[2019-08-26] MEDS: LACTOBACILLUS RHAMNOSUS GG 1 EACH CAP PO SCH (09:12)
[2019-08-26] MEDS: LOSARTAN 25 MG TAB PO SCH (09:12)
[2019-08-26] MEDS: FERROUS SULFATE 325 MG TABEC PO SCH (09:13)
[2019-08-26] MEDS: traZODone 50 MG TAB PO SCH (09:13)
[2019-08-26] MEDS: TAMSULOSIN 0.4 MG CAP PO SCH (09:14)
[2019-08-26] MEDS: glipiZIDE ER 5 MG TABER PO SCH (09:15)
[2019-08-26] MEDS: guaiFENesin 600 MG TABER PO SCH (09:16)
[2019-08-26] MEDS: levETIRAcetam 500 MG TAB PO SCH (09:16)
[2019-08-26] MEDS: ATORVASTATIN 80 MG TAB PO SCH (09:16)
[2019-08-26] MEDS: AZITHROMYCIN 250 MG TAB PO SCH (09:16)
[2019-08-26] MEDS ORDERED: GUAI-791 PO (09:17)
[2019-08-26] MEDS ORDERED: AZIT250T11 PO (09:17)
--- NOTE | 2019-08-26 09:56 | NUR ---
SCREEN FOR LOW TIRP SCALE AT RISK, CONTINUE TO FOLLOW PRESSURE ULCER PREVENTION INTERVENTIONS. -TURN AND REPOSITION PATIENT Q2H, ASSIST IF NEEDED -ASSESS AND MONITOR SKIN CONDITION DURING POSITION CHANGES -OFFLOAD BILATERAL HEELS BY PLACING PILLOWS UNDER CALVES AT ALL TIMES, UNLESS OTHERWISE CONTRAINDICATED -PRESSURE REDISTRIBUTION BY PLACING PILLOWS AND OFFLOADING SACRALCOCCYX -KEEP SKIN CLEAN AND DRY AT ALL TIMES.
--- NOTE | 2019-08-26 10:45 | NUR ---
PT IS FOR D/C TO [facility]. SPOKE TO LEAH FOR ARRANGEMENT OF TRANSPORT. SHE SAID [facility] TIME IS BETWEEN 1-2PM TODAY. WILL CONTINUE TO MONITOR
--- NOTE | 2019-08-26 13:00 | NUR ---
DC FORMS INSTRUCTED. PT VERBALIZED UNDERSTANDING AND SIGNED DC FORMS.
[2019-08-26 13:22] VITALS: BP 126/77
--- NOTE | 2019-08-26 13:30 | NUR ---
SCHEDULED MEDS GIVEN. HERNANDEZ CATH REMOVED WITH 600ML OUTPUT. IV REMOVED WITH INTACT CANNULA.
--- NOTE | 2019-08-26 14:45 | NUR ---
PT IS PICKED UP BY [facility]REG[facility] FROM [facility]. PT IS STABLE. PT HAS ALL HIS BELONGINGS WITH HIM UPON D/C.
== END 2019-08-26 14:45 | disposition home or self-care (01) | DRG 682 ==
LOC: MED 21:26 → MTU 22:28
PROVIDERS: ADMIT General Practice; ATTEND General Practice
DX: N17.0 Acute kidney failure with tubular necrosis (principal); J18.9 Pneumonia, unspecified organism; E44.0 Moderate protein-calorie malnutrition; I69.351 Hemiplegia and hemiparesis following cerebral infarction affecting right dominant side; D63.8 Anemia in other chronic diseases classified elsewhere; E11.9 Type 2 diabetes mellitus without complications; G40.909 Epilepsy, unspecified, not intractable, without status epilepticus; I11.0 Hypertensive heart disease with heart failure; I50.9 Heart failure, unspecified; N40.1 Benign prostatic hyperplasia with lower urinary tract symptoms; R33.8 Other retention of urine; D50.9 Iron deficiency anemia, unspecified; E86.0 Dehydration; E66.9 Obesity, unspecified; Z68.31 Body mass index [BMI] 31.0-31.9, adult; Z90.49 Acquired absence of other specified parts of digestive tract; Z79.899 Other long term (current) drug therapy
CPT/HCPCS: 36415; 36600; 71045; 76770; 80048; 80053; 80305; 81003; 82140; 82150; 82550; 82553; 82607; 82728; 82746; 82803; 82948; 83036; 83540; 83605; 83615; 83690; 83735; 83880; 84100; 84134; 84443; 84484; 85025; 85045; 85379; 85610; 85730; 87040; 87081; 87086; 87804; 92610; 93970; 94640; 96365; 96368; 96375; 97110; 97112; 97161-GP; 97530; 99291; J0456; J0696; J1644; J1815; J1885; J2185; J3370; J7030; J7042; J7060; J7620; Q0092

== ENCOUNTER 2019-10-23 02:52 | Emergency (ER) | payer OTHER, MEDICAID ==
[~2019-10-23] VITALS: Ht 190.5 cm; Wt 130.2 kg
[~2019-10-23 02:52] MED LIST: ACET-2619 PO; ASPI81EC97 PO; AZIT250T11 PO; BUME1TAB92 PO; FERR325E14 PO; GLIP5TER PO; GUAI-791 PO; HYDR-732 PO; LEVE1000 PO; LOSA25TA43 PO; ROSU40TA PO; SITA50TA3 PO; TAMS0.4C96 PO; TRAZ-343 PO
--- NOTE | 2019-10-23 02:53 | NUR ---
PT BETO BENITEZ. TAKEN TO BED 11
[2019-10-23 02:54] VITALS: BP 135/79
--- NOTE | 2019-10-23 02:55 | NUR ---
PT BIBA C/O BILATERAL LEG AND FOOT PAIN 05/12. RESIDES AT [facility]. STATES HE HAS AN OINTMENT MEDICATION THAT HE HAS BEEN UNABLE TO APPLY TO HIS LEGS; WHICH HAS EXACERBATED HIS PAIN. HX STROKE WITH PARALYSIS ON RIGHT SIDE. AOX4. PEDAL PULSES +3 BILATERALLY. BASELINE MOBILITY. VSS. PT APPEARS CONTENT; SAT [facility] IN [facility]. WILL CONTINUE TO MONITOR.
--- NOTE | 2019-10-23 03:06 | NUR ---
Dr. Puente examining patient.
[2019-10-23 05:23] VITALS: BP 135/79
--- NOTE | 2019-10-23 05:23 | NUR ---
Patient discharged with v/s stable. Written and verbal after care instructions given and explained. Patient verbalized understanding. Ambulance Transport with to senior living. All questions addressed prior to discharge. Advised to follow up with PMD.
== END 2019-10-23 03:40 | disposition home or self-care (01) ==
LOC: MED 02:52
DX: L30.8 Other specified dermatitis (principal); I11.0 Hypertensive heart disease with heart failure; I50.9 Heart failure, unspecified; E11.9 Type 2 diabetes mellitus without complications; Z79.82 Long term (current) use of aspirin; Z79.899 Other long term (current) drug therapy; Z86.73 Personal history of transient ischemic attack (TIA), and cerebral infarction without residual deficits
CPT/HCPCS: 99283

== ENCOUNTER 2020-01-29 16:58 | Emergency (ER) | payer OTHER, MEDICAID ==
--- NOTE | 2020-01-29 17:27 | NUR ---
LEFT W/O BEING TRIAGED
== END 2020-01-29 17:27 | disposition left against medical advice (07) ==
LOC: MED 16:58
DX: Z53.21 Procedure and treatment not carried out due to patient leaving prior to being seen by health care provider (principal)

== ENCOUNTER 2020-03-18 14:24 | Emergency (ER) | payer OTHER, MEDICAID ==
[~2020-03-18] VITALS: Ht 190.5 cm; Wt 127.0 kg
--- NOTE | 2020-03-18 14:51 | NUR ---
Patient to bed 7 via personal wheelchair. RN evaluating patient at bedside.
[2020-03-18 15:04] VITALS: BP 127/78
--- NOTE | 2020-03-18 15:04 | NUR ---
64 Y/O M C/C BLISTERS/ABSCESS ON BILATERAL BUTTOCKS AND THIGHS X 8 MONTHS. SKIN PRESENTS WITH SLIGHT BUMP, NO OPEN WOUNDS NOTED, NO BLEEDING NOTED. PT NKA. HX HTN,DM,SZ. RX KEPPRA,GLIPIZIDE,METOPROLOL. NO NVD. PT PRESENTS EUPNIC,VSS,WHEELCHAIR ASSISTED,A/OX4. SIDE RAIL X1.
--- NOTE | 2020-03-18 15:10 | NUR ---
ERMD AT BEDSIDE
[2020-03-18 15:37] VITALS: BP 127/78
--- NOTE | 2020-03-18 15:37 | NUR ---
Patient discharged with v/s stable. Written and verbal after care instructions given and explained. Patient alert, oriented and verbalized understanding of instructions. Wheel Chair Assisted with to home. All questions addressed prior to discharge. ID band removed. Patient advised to follow up with PMD. Rx of KETOCONAZOLE given. Patient educated on indication of medication including possible reaction and side effects. Opportunity to ask questions provided and answered.
--- NOTE | 2020-03-18 15:37 | NUR ---
PT D/C BY DR HIDALGO
== END 2020-03-18 15:22 | disposition home or self-care (01) ==
LOC: MED 14:24
DX: B35.3 Tinea pedis (principal); I11.0 Hypertensive heart disease with heart failure; I50.9 Heart failure, unspecified; E11.9 Type 2 diabetes mellitus without complications; Z86.73 Personal history of transient ischemic attack (TIA), and cerebral infarction without residual deficits; Z79.899 Other long term (current) drug therapy; Z79.82 Long term (current) use of aspirin
CPT/HCPCS: 99283

== ENCOUNTER 2020-03-23 11:31 | Emergency (ER) | payer OTHER, MEDICAID ==
[~2020-03-23] VITALS: Ht 190.5 cm; Wt 127.0 kg
--- NOTE | 2020-03-23 11:31 | NUR ---
Patient BETO BENITEZ from [facility], transferred to bed 8. RN evaluating patient at bedside.
[2020-03-23 11:37] VITALS: BP 108/69
--- NOTE | 2020-03-23 11:43 | NUR ---
64/M BETO FROM [facility] FOR FSBS >500 THIS AM. PER FACILITY PROTOCOL, TX TO ER. NO INSULIN GIVEN. PT STATES HE THINKS HE HAD TAKEN PO METFORMIN IN AM TODAY. DENIES PAIN, N/V. AAOX4. HX- CVA WITH RIGHT SIDED DEFICITYS, DM, CHF, GERD, HTN, DEPRESSION, KIDNEY DISEASE, EPILEPSY, BPH NKA
--- NOTE | 2020-03-23 11:55 | NUR ---
DR. MARTINEZ EVALUATING PT AT BEDSIDE. REPORTED FSBS HERE OF 339 TO ERMD
--- NOTE | 2020-03-23 12:04 | NUR ---
URINAL PROVIDED TO PT. PT UNDERSTANDS THE NEED FOR URINE SAMPLE.
--- NOTE | 2020-03-23 12:12 | NUR ---
XRAY AT BEDSIDE
--- NOTE | 2020-03-23 13:02 | NUR ---
PT HAVE NOT YET BEEN ABLE TO VOID. STATES USES URINAL USUALLY. WANT TO CONTINUE ATTEMPTING TO VOID IN URINAL, DOES NOT WANT TO BE STRAIGHT CATH AT THIS TIME
--- NOTE | 2020-03-23 13:23 | NUR ---
RAILROAD SURVEYOR AT BEDSIDE
[2020-03-23 13:40] LABS: BASOPHILS # (AUTO) 0.1 K/uL (0.00-0.22); BASOPHILS % (AUTO) 0.6 % (0.0-2.0); EOSINOPHILS % (AUTO) 0.3 % (0.0-4.0); HEMATOCRIT 38.6 % (36-52); HEMOGLOBIN 12.7 g/dL (12.0-18.0); LYMPHOCYTES % (AUTO) 9.1 % (20.5-51.1); MEAN CORPUSCULAR HEMOGLOBIN 27 pg (27-31); MEAN CORPUSCULAR HGB CONC 33 g/dL (33-37); MONOCYTES # (AUTO) 0.8 K/uL (0.8-1.0); MONOCYTES % (AUTO) 7.3 % (1.7-9.3); NEUTROPHILS # (AUTO) 9.4 K/uL (1.8-7.7); NEUTROPHILS % (AUTO) 82.7 % (42.2-75.2); PLATELET COUNT (AUTO) 188 K/uL (140-450); RED BLOOD CELL COUNT(AUTO) 4.65 MIL/uL (4.20-6.10); RED CELL DISTRIBUTION WIDTH 13.3 % (11.6-13.7); WHITE BLOOD COUNT (AUTO) 11.4 K/uL (4.8-10.8)
--- NOTE | 2020-03-23 13:46 | NUR ---
URINE SAMPLE HANDED TO SALES SERVICE PROMOTER
[2020-03-23 14:10] LABS: ALBUMIN 3.1 g/dL (3.4-5.0); ANION GAP 13.1 (8-16); CARBON DIOXIDE 29.6 mmol/L (21-32); POTASSIUM 4.7 mmol/L (3.5-5.1); TOTAL BILIRUBIN 0.4 mg/dL (0.0-1.0)
[2020-03-23 14:41] LABS: APPEARANCE,URINE CLEAR (CLEAR); BILIRUBIN,URINE NEGATIVE (NEGATIVE); BLOOD, URINE TRACE-I (NEGATIVE); LEUKOCYTE ESTERASE ,URINE NEGATIVE (NEGATIVE); NITRITE, URINE NEGATIVE (NEGATIVE); PH,URINE 6.5 (5.0-9.0); UGLUCOSE 3+ (NEGATIVE)
[2020-03-23 14:42] LABS: COLOR,URINE YELLOW (YELLOW)
[2020-03-23 15:09] LABS: RBC,URINE 0-5 /HPF (0-5); WBC,URINE 0-5 /HPF (0-5)
--- NOTE | 2020-03-23 15:25 | NUR ---
NOTIFIED TUCKER DE JESUS PT WILL BE D/C. PER FACILITY, NO D/C TRANSPORTATION CAN BE PROVIDED BY FACILITY AT THIS TIME.
--- NOTE | 2020-03-23 17:12 | NUR ---
Dr. Cui is reevaluating the patient at bedside.
--- NOTE | 2020-03-23 17:12 | NUR ---
DR. MARTINEZ SPEAKING WITH PATIENT, PT REQUESTED TO SPEAK WITH ERMD REGARDING D/C DIAGNOSIS OF CKD.
--- NOTE | 2020-03-23 18:52 | NUR ---
[employer] at bedside.
--- NOTE | 2020-03-23 18:57 | NUR ---
Patient discharged with v/s stable. Written and verbal after care instructions given and explained. Patient verbalized understanding. REPORT TO [facility]. PT IN STABLE CONDITION. WILL BE TRANSFERRED VIA GURNEY TO [facility]. All questions addressed prior to discharge. Advised to follow up with PMD.
[2020-03-23 18:59] VITALS: BP 110/65
== END 2020-03-23 18:57 ==
LOC: MED 11:31
DX: E11.22 Type 2 diabetes mellitus with diabetic chronic kidney disease (principal); I13.10 Hypertensive heart and chronic kidney disease without heart failure, with stage 1 through stage 4 chronic kidney disease, or unspecified chronic kidney disease; N18.9 Chronic kidney disease, unspecified; Z86.73 Personal history of transient ischemic attack (TIA), and cerebral infarction without residual deficits; Z79.899 Other long term (current) drug therapy; Z79.82 Long term (current) use of aspirin
CPT/HCPCS: 36415; 71045; 80053; 81001; 82009; 83880; 85025; 99285; C1758; Q0092; 99284

== ENCOUNTER 2020-03-24 19:24 | Emergency (ER) | payer OTHER, MEDICAID ==
[~2020-03-24] VITALS: Ht 190.5 cm; Wt 117.9 kg
[2020-03-24 19:40] VITALS: BP 121/77
[2020-03-24 21:41] VITALS: BP 121/77
--- NOTE | 2020-03-24 21:41 | NUR ---
NO NURSING INTERVENTION DONE.
--- NOTE | 2020-03-24 21:42 | NUR ---
Patient discharged with v/s stable. Written and verbal after care instructions given and explained. Patient alert, oriented and verbalized understanding of instructions. Wheel Chair Assisted with to car. All questions addressed prior to discharge. ID band removed. Patient advised to follow up with PMD. Rx of MANUEL FAIRCHILD given. Patient educated on indication of medication including possible reaction and side effects. Opportunity to ask questions provided and answered.
== END 2020-03-24 21:42 | disposition home or self-care (01) ==
LOC: MED 19:24
DX: M25.50 Pain in unspecified joint (principal); E11.65 Type 2 diabetes mellitus with hyperglycemia; I13.10 Hypertensive heart and chronic kidney disease without heart failure, with stage 1 through stage 4 chronic kidney disease, or unspecified chronic kidney disease; E11.22 Type 2 diabetes mellitus with diabetic chronic kidney disease; N18.9 Chronic kidney disease, unspecified; Z79.899 Other long term (current) drug therapy; Z79.84 Long term (current) use of oral hypoglycemic drugs; Z79.2 Long term (current) use of antibiotics; Z79.82 Long term (current) use of aspirin
CPT/HCPCS: 99283